=== PATIENT | female | born 1995 | race Caucasian/White ===

== ENCOUNTER 2019-07-08 17:00 | Emergency (ER) | payer BC ==
[2019-07-08] MEDS ORDERED: Sodium Chloride 0.9% 10 ML Syringe FLUSH PRN (17:18)
--- NOTE | 2019-07-08 17:40 | EDM.PDOC ---
ED HPI GENERAL MEDICAL PROBLEM - General Chief Complaint: Back Pain or Injury Stated Complaint: BACK PAIN Time Seen by Provider: 07/08/19 17:05 Source of Information: Reports: Patient History Limitations: Reports: No Limitations - History of Present Illness INITIAL COMMENTS - FREE TEXT/NARRATIVE: Pt. presents to ER with complaints of mid back pain. She was seen in the ER in [facility] earlier today for the same. Pt. states that she had labwork and urinalysis and it was "all fine". She was discharged from the ER with a course of Tramadol for what sounds like a diagnosis of mechanical back pain. Pt. states that she has been gardening a lot and feels that this may have caused the problem. Denies any specific trauma. No imaging was performed in the ER in [place]. 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 Pt. denies any fever or chills. No chest pain or shortness of breath. No cough. No chest congestion. No nausea, vomiting, or diarrhea. Denies any dysuria. No diaphoresis. Onset: Today Onset Date: 07/08/19 Location: Reports: Back Quality: Reports: Throbbing Improves with: Reports: Rest Worsens with: Reports: Movement - Related Data Allergies Allergy/AdvReac Type Severity Reaction Status Date / Time amoxicillin [From Augmentin] Allergy Other Verified 07/08/19 17:18 clavulanic acid Allergy Other Verified 07/08/19 17:18 [From Augmentin] vancomycin Allergy Other Verified 07/08/19 17:18 Home Meds: Home Meds LORazepam [Ativan] 0.5 mg PO ASDIRECTED PRN 07/08/19 [History] rOPINIRole [Requip] 1 mg PO ASDIRECTED 07/08/19 [History] traZODone HCl [Trazodone HCl] 100 mg PO BEDTIME 07/08/19 [History] ED ROS GENERAL - Review of Systems Review Of Systems: See Below Constitutional: Denies: Fever, Chills, Weakness, Fatigue HEENT: Reports: No Symptoms Respiratory: Reports: No Symptoms Cardiovascular: Reports: No Symptoms Endocrine: Reports: No Symptoms GI/Abdominal: Reports: No Symptoms : Reports: No Symptoms Musculoskeletal: Reports: Back Pain Skin: Reports: No Symptoms Neurological: Reports: No Symptoms Psychiatric: Reports: No Symptoms Hematologic/Lymphatic: Reports: No Symptoms Immunologic: Reports: No Symptoms ED EXAM, GENERAL - Physical Exam Exam: See Below Exam Limited By: No Limitations General Appearance: Alert, WD/WN, No Apparent Distress Nose: Normal Inspection, Normal Mucosa, No Blood Throat/Mouth: Normal Inspection, Normal Lips, Normal Teeth, Normal Gums, Normal Oropharynx, Normal Voice, No Airway Compromise Head: Atraumatic, Normocephalic Neck: Normal Inspection, Supple, Non-Tender, Full Range of Motion Respiratory/Chest: No Respiratory Distress, Lungs Clear, Normal Breath Sounds, No Accessory Muscle Use, Chest Non-Tender Cardiovascular: Normal Peripheral Pulses, Regular Rate, Rhythm, No Edema, No Gallop, No JVD, No Murmur, No Rub GI/Abdominal: Normal Bowel Sounds, Soft, Non-Tender, No Organomegaly, No Distention, No Abnormal Bruit, No Mass (Female) Exam: Deferred Rectal (Female) Exam: Deferred Back Exam: Normal Inspection, CVA Tenderness (L), CVA Tenderness (R), Decreased Range of Motion, Muscle Spasm Extremities: Normal Inspection, Normal Range of Motion, Non-Tender, No Pedal Edema, Normal Capillary Refill Neurological: Alert, Oriented, CN II-XII Intact, Normal Cognition, Normal Gait, Normal Reflexes, No Motor/Sensory Deficits Psychiatric: Normal Affect, Normal Mood Skin Exam: Warm, Dry, Intact, Normal Color, No Rash Lymphatic: No Adenopathy Course - Vital Signs Last Recorded V/S: Last Vital Signs Temp 36.7 C 07/08/19 17:05 Pulse 101 H 07/08/19 17:05 Resp 18 07/08/19 17:05 BP 128/82 07/08/19 17:05 Pulse Ox 98 07/08/19 17:05 - Orders/Labs/Meds Orders: Active Orders 24 hr Category Date Time Status Peripheral IV Insertion Adult [OM.PC] Routine Oth 07/08/19 17:19 Ordered Labs: Laboratory Tests 07/08/19 07/08/19 07/08/19 Range/Units 17:30 17:30 17:30 WBC 8.6 (4.0-10.0) x10^3/uL RBC 3.93 L (4.00-5.50) x10^6/uL Hgb 10.8 L (12.0-16.0) g/dL Hct 32.9 L (33.0-47.0) % MCV 83.7 (78.0-93.0) fL MCH 27.5 (26.0-32.0) pg MCHC 32.8 (32.0-36.0) g/dL RDW Coeff of Anayeli 13.6 (10.0-15.0) % Plt Count 213 (130-400) x10^3/uL Neut % (Auto) 56.1 (50.0-80.0) % Lymph % (Auto) 33.9 (25.0-50.0) % [place] % (Auto) 7.9 (2.0-11.0) % Eos % (Auto) 1.9 (0.0-4.0) % Baso % (Auto) 0.2 (0.2-1.2) % PT 10.2 (10.0-12.8) SEC INR 0.9 L (2.0-3.5) Sodium 141 (136-145) mmol/L Potassium 4.0 (3.5-5.1) mmol/L Chloride 103 (98-107) mmol/L Carbon Dioxide 28 (21-32) mmol/L Anion Gap 14.0 (10-20) mmol/L BUN 18 (7-18) mg/dL Creatinine 1.2 H (0.55-1.02) mg/dL Est Cr Clr Drug Dosing TNP Estimated GFR (MDRD) 54 Glucose 87 (74-106) mg/dL Lactic Acid (0.4-2.0) mmol/L Calcium 9.0 (8.5-10.1) mg/dL Corrected Calcium 9.16 (8.5-10.1) mg/dL Phosphorus 3.6 (2.6-4.7) mg/dL Magnesium 1.8 (1.8-2.4) mg/dL Total Bilirubin 0.3 (0.2-1.0) mg/dL AST 16 (15-37) U/L ALT 22 (14-59) U/L Alkaline Phosphatase 76 (46-116) U/L C-Reactive Protein 0.4 (<=0.9) mg/dL Total Protein 7.7 (6.4-8.2) g/dL Albumin 3.8 (3.4-5.0) g/dL Globulin 3.9 Albumin/Globulin Ratio 0.97 Urine Color (YELLOW) Urine Appearance (CLEAR) Urine pH (5.0-8.0) Ur Specific [place] Urine Protein (NEGATIVE) mg/dL Urine Glucose (UA) (NEGATIVE) mg/dL Urine Ketones (NEGATIVE) mg/dL Urine Occult Blood (NEGATIVE) Urine Nitrite (NEGATIVE) Urine Bilirubin (NEGATIVE) Urine Urobilinogen (0.2) EU/dL Ur Leukocyte Esterase (NEGATIVE) Urine RBC (NOT SEEN) /HPF Urine WBC (NOT SEEN) /HPF Ur Squamous Epith Cells (NEGATIVE) /HPF Amorphous Sediment Urine Bacteria (NEGATIVE) /HPF Urine Mucus (NEGATIVE) /LPF 07/08/19 07/08/19 Range/Units 17:30 17:55 WBC (4.0-10.0) x10^3/uL RBC (4.00-5.50) x10^6/uL Hgb (12.0-16.0) g/dL Hct (33.0-47.0) % MCV (78.0-93.0) fL MCH (26.0-32.0) pg MCHC (32.0-36.0) g/dL RDW Coeff of Anayeli (10.0-15.0) % Plt Count (130-400) x10^3/uL Neut % (Auto) (50.0-80.0) % Lymph % (Auto) (25.0-50.0) % [place] % (Auto) (2.0-11.0) % Eos % (Auto) (0.0-4.0) % Baso % (Auto) (0.2-1.2) % PT (10.0-12.8) SEC INR (2.0-3.5) Sodium (136-145) mmol/L Potassium (3.5-5.1) mmol/L Chloride (98-107) mmol/L Carbon Dioxide (21-32) mmol/L Anion Gap (10-20) mmol/L BUN (7-18) mg/dL Creatinine (0.55-1.02) mg/dL Est Cr Clr Drug Dosing Estimated GFR (MDRD) Glucose (74-106) mg/dL Lactic Acid 0.8 (0.4-2.0) mmol/L Calcium (8.5-10.1) mg/dL Corrected Calcium (8.5-10.1) mg/dL Phosphorus (2.6-4.7) mg/dL Magnesium (1.8-2.4) mg/dL Total Bilirubin (0.2-1.0) mg/dL AST (15-37) U/L ALT (14-59) U/L Alkaline Phosphatase (46-116) U/L C-Reactive Protein (<=0.9) mg/dL Total Protein (6.4-8.2) g/dL Albumin (3.4-5.0) g/dL Globulin Albumin/Globulin Ratio Urine Color Yellow (YELLOW) Urine Appearance Cloudy H (CLEAR) Urine pH 5.5 (5.0-8.0) Ur Specific [place] 1.025 Urine Protein Negative (NEGATIVE) mg/dL Urine Glucose (UA) Negative (NEGATIVE) mg/dL Urine Ketones Negative (NEGATIVE) mg/dL Urine Occult Blood Negative (NEGATIVE) Urine Nitrite Negative (NEGATIVE) Urine Bilirubin Negative (NEGATIVE) Urine Urobilinogen 0.2 (0.2) EU/dL Ur Leukocyte Esterase Trace H (NEGATIVE) Urine RBC 0-5 (NOT SEEN) /HPF Urine WBC 20-30 H (NOT SEEN) /HPF Ur Squamous Epith Cells Moderate H (NEGATIVE) /HPF Amorphous Sediment Few Urine Bacteria Few H (NEGATIVE) /HPF Urine Mucus Few H (NEGATIVE) /LPF Meds: Medications Discontinued Medications Generic Name Dose Route Start Last Admin Trade Name Freq PRN Reason Stop Dose Admin Cyclobenzaprine HCl 1 packet 07/08/19 18:32 07/08/19 18:39 Take Home: Cyclobenzaprine 10 Mg, 4 Tab Pack PO 07/08/19 18:33 1 packet ONETIME ONE Administration Diphenhydramine HCl 50 mg 07/08/19 18:02 07/08/19 18:07 Benadryl IVPUSH 07/08/19 18:03 50 mg ONETIME ONE Administration Morphine Sulfate 4 mg 07/08/19 17:57 07/08/19 18:09 Morphine IVPUSH 07/08/19 17:58 4 mg ONETIME ONE Administration Sodium Chloride 10 ml 07/08/19 17:18 Saline Flush FLUSH ASDIRECTED PRN Keep Vein Open Trimethoprim/Sulfamethoxazole 1 packet 07/08/19 18:26 07/08/19 18:39 Take Home: Sulfameth/Trimet 800-160mg, 2 Pack PO 07/08/19 18:27 1 packet ONETIME ONE Administration Departure - Departure Time of Disposition: 18:45 Disposition: Home, Self-Care 01 Clinical Impression: Back pain - Discharge Information Instructions: Mid-Back Strain, Cyclobenzaprine tablets, Urinary Tract Infection , Adult, Sulfamethoxazole; Trimethoprim, SMX-TMP tablets, Probiotics Referrals: PCP,Unknown [Primary Care Provider] - Forms: ED Department Discharge - My Orders Last 24 Hours: My Active Orders 07/08/19 17:19 Peripheral IV Insertion Adult [OM.PC] Routine - Assessment/Plan Last 24 Hours: My Active Orders 07/08/19 17:19 Peripheral IV Insertion Adult [OM.PC] Routine Plan: Home to rest. Continue with tramadol. Flexeril 10mg three times daily. Follow-up in clinic in 5-7 days if not gradually improving.
--- NOTE | 2019-07-08 17:53 | CR ---
[id number] RAD/RAD Chest PA or AP 1V EXAM: RAD Chest PA or AP 1V INDICATION: MID BACK PAIN. COMPARISON: None. DISCUSSION: Cardiomediastinal silhouette is normal in size and contour. No infiltrate, effusion, pneumothorax, or edema. IMPRESSION: No significant cardiopulmonary abnormality. Kaz Almonte DO 07/08/19 0338 Thank you for allowing us to participate in the care of your patient.
[2019-07-08] MEDS ORDERED: Morphine 4 MG/ML Syringe IVPUSH ONE (17:57)
[2019-07-08 18:01] LABS: CHLORIDE,CL 103 mmol/L (98-107); SODIUM,NA 141 mmol/L (136-145)
[2019-07-08] MEDS ORDERED: diphenhydrAMINE 50 MG/ML SDV IVPUSH ONE (18:02)
[2019-07-08] MEDS ORDERED: Take Home: Sulfamethoxazole/Trimethoprim 800-160 MG Tab, 2 Tab Pack PO ONE (18:26)
[2019-07-08] MEDS ORDERED: Take Home: Cyclobenzaprine 10 MG Tab, 4 Tab Pack PO ONE (18:32)
== END 2019-07-08 18:45 | disposition home or self-care (01) ==
LOC: VM.ED 17:00
DX: M54.6 Pain in thoracic spine (principal); Z88.1 Allergy status to other antibiotic agents; Z79.899 Other long term (current) drug therapy
CPT/HCPCS: 71045; 80053; 81001; 83605; 83735; 84100; 85025; 85610; 86140; 96374; 96375; 99284; A9270; J1200; J2270; 36415

== ENCOUNTER 2019-07-20 14:50 | Emergency (ER) | payer BC ==
[2019-07-20] MEDS ORDERED: diphenhydrAMINE 50 MG/ML SDV IVPUSH ONE ×3 (15:03→17:07)
--- NOTE | 2019-07-20 15:09 | EDM.PDOC ---
ED HPI GENERAL MEDICAL PROBLEM - General Chief Complaint: Chest Pain Stated Complaint: CHEST PAIN Time Seen by Provider: 07/20/19 14:55 Source of Information: Reports: Patient, EMS History Limitations: Reports: No Limitations - History of Present Illness INITIAL COMMENTS - FREE TEXT/NARRATIVE: 24-year-old white female presents to ER via EMS with 2 hours of chest pain now midsternal nonradiating sharp pressure is 8 out of 10. 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 She denies any shortness of breath no radiation of pain has some nausea no vomiting also complains of right flank pain times months which she has been seeing urology for for years for chronic UTIs she is currently on antibiotic Cipro unsure if she takes it once or twice day at this time states she has been on it for approximately 2 months or so now. She denies any fever or chills night sweats or shortness breath dyspnea on exertion Onset: Today, Sudden Duration: Hour(s): Quality: Reports: Pressure, Stabbing Severity: Severe Improves with: Reports: None Worsens with: Reports: Breathing, Movement Treatments VASCULAR TECHNOLOGIST: Denies: Acetaminophen, NSAIDS Middle Chest Pain Score (Numeric/FACES): 8 - Related Data Allergies Allergy/AdvReac Type Severity Reaction Status Date / Time amoxicillin [From Augmentin] Allergy Other Verified 07/08/19 17:18 clavulanic acid Allergy Other Verified 07/08/19 17:18 [From Augmentin] sulfamethoxazole Allergy Other Verified 07/20/19 15:36 [From Bactrim] trimethoprim [From Bactrim] Allergy Other Verified 07/20/19 15:36 vancomycin Allergy Other Verified 07/08/19 17:18 Home Meds: Home Meds rOPINIRole [Requip] 1 mg PO ASDIRECTED 07/08/19 [History] traZODone HCl [Trazodone HCl] 100 mg PO BEDTIME 07/08/19 [History] Ciprofloxacin [Ciprofloxacin HCl] 250 mg DAILY 07/20/19 [History] DULoxetine HCl [Duloxetine HCl] 30 mg BID 07/20/19 [History] Past Medical History Psychiatric History: Reports: Anxiety - Past Surgical History Female Surgical History: Reports: Nephrectomy ED ROS GENERAL - Review of Systems Review Of Systems: See Below Constitutional: Reports: No Symptoms HEENT: Reports: No Symptoms Respiratory: Denies: Shortness of Breath, Wheezing, Pleuritic Chest Pain, Cough Cardiovascular: Reports: Chest Pain. Denies: Blood Pressure Problem, Claudication, Dyspnea on Exertion, Edema, Lightheadedness, Orthopnea, Palpitations, PND, Syncope Endocrine: Reports: No Symptoms GI/Abdominal: Reports: No Symptoms, Nausea. Denies: Abdominal Pain, Vomiting : Reports: Flank Pain. Denies: Frequency, Pain, Urgency Musculoskeletal: Reports: No Symptoms Skin: Reports: No Symptoms Neurological: Reports: No Symptoms Psychiatric: Reports: No Symptoms Hematologic/Lymphatic: Reports: No Symptoms Immunologic: Reports: No Symptoms ED EXAM, GENERAL - Physical Exam Exam: See Below Exam Limited By: No Limitations General Appearance: Alert, WD/WN, No Apparent Distress Eye Exam: Bilateral Eye: EOMI, PERRL Nose: Normal Inspection, Normal Mucosa, No Blood Throat/Mouth: Normal Inspection, Normal Lips, Normal Teeth, Normal Gums, Normal Oropharynx, Normal Voice, No Airway Compromise Neck: Normal Inspection, Supple, Non-Tender, Full Range of Motion Respiratory/Chest: No Respiratory Distress, Lungs Clear, Normal Breath Sounds, No Accessory Muscle Use, Other (Positive tenderness to palpation mid sternum of the chest with reproduction of pain). No: Chest Non-Tender Cardiovascular: Normal Peripheral Pulses, Regular Rate, Rhythm, No Edema, No Gallop, No JVD, No Murmur, No Rub GI/Abdominal: Normal Bowel Sounds, Soft, Non-Tender, No Organomegaly, No Distention Back Exam: Normal Inspection, Full Range of Motion. No: CVA Tenderness (L), CVA Tenderness (R), Decreased Range of Motion Extremities: Normal Inspection, Normal Range of Motion, Non-Tender Neurological: Alert, Oriented, CN II-XII Intact, Normal Cognition, Normal Gait Psychiatric: Normal Affect, Normal Mood Skin Exam: Warm, Dry, Intact, Normal Color, No Rash Course - Vital Signs Text/Narrative:: EKG via EMS normal sinus rhythm no acute elevation or depression or changes CBC BMP troponin all negative Urine negative nitrites few bacteria and moderate leukocytes and trace protein patient is currently on Cipro twice a day and sees a urologist all have her follow up with her primary care provider and urologist in the next 24-48 hours with the patient's history culture and sensitivity was sent antibiotics were withheld at this time secondary to patient's significant history of UTIs and currently on Cipro Patient rechecked at 1645 negative chest pain at this time states she is okay with following up primary care provider/urology she will call try to get an appointment we will send a urine culture and sensitivity as well Second troponin is negative PT actively drinking [place] DEW talking on phone txt msg NAD Patient was overheard with a questionable fall to the floor upon standing up out of the chair in the room patient did not have LOC denies any injury states she is fine she was helped back in a chair she said she is fine she is neurologically intact states she is okay with diagnosis treatment well and go home and follow up with her urologist in [place] Last Recorded V/S: Last Vital Signs Temp 37.1 C 07/20/19 14:50 Pulse 100 07/20/19 14:50 Resp 18 07/20/19 14:50 BP 124/69 07/20/19 14:50 Pulse Ox 97 07/20/19 14:50 - Orders/Labs/Meds Orders: Active Orders 24 hr Category Date Time Status CULTURE URINE [RM] Stat Lab 07/20/19 15:10 Received Labs: Laboratory Tests 07/20/19 07/20/19 07/20/19 Range/Units 15:05 15:05 15:10 WBC 9.3 (4.0-10.0) x10^3/uL RBC 4.29 (4.00-5.50) x10^6/uL Hgb 11.8 L (12.0-16.0) g/dL Hct 36.0 (33.0-47.0) % MCV 83.9 (78.0-93.0) fL MCH 27.5 (26.0-32.0) pg MCHC 32.8 (32.0-36.0) g/dL RDW Coeff of Anayeli 14.3 (10.0-15.0) % Plt Count 311 D (130-400) x10^3/uL Neut % (Auto) 57.0 (50.0-80.0) % Lymph % (Auto) 30.8 (25.0-50.0) % [place] % (Auto) 9.8 (2.0-11.0) % Eos % (Auto) 2.2 (0.0-4.0) % Baso % (Auto) 0.2 (0.2-1.2) % Sodium 140 (136-145) mmol/L Potassium 4.1 (3.5-5.1) mmol/L Chloride 104 (98-107) mmol/L Carbon Dioxide 26 (21-32) mmol/L Anion Gap 14.1 (10-20) mmol/L BUN 9 (7-18) mg/dL Creatinine 1.1 H (0.55-1.02) mg/dL Est Cr Clr Drug Dosing TNP Estimated GFR (MDRD) > 60 Glucose 89 (74-106) mg/dL Calcium 9.0 (8.5-10.1) mg/dL Troponin I < 0.017 (<=0.056) ng/mL Urine Color Dark yellow H (YELLOW) Urine Appearance Turbid H (CLEAR) Urine pH 5.5 (5.0-8.0) Ur Specific [place] >=1.030 Urine Protein Trace H (NEGATIVE) mg/dL Urine Glucose (UA) Negative (NEGATIVE) mg/dL Urine Ketones Negative (NEGATIVE) mg/dL Urine Occult Blood Negative (NEGATIVE) Urine Nitrite Negative (NEGATIVE) Urine Bilirubin Negative (NEGATIVE) Urine Urobilinogen 0.2 (0.2) EU/dL Ur Leukocyte Esterase Moderate H (NEGATIVE) Urine RBC 0-5 (NOT SEEN) /HPF Urine WBC 75-100 H (NOT SEEN) /HPF Ur Squamous Epith Cells Moderate H (NEGATIVE) /HPF Amorphous Sediment Few Urine Bacteria Few H (NEGATIVE) /HPF Urine Mucus Moderate H (NEGATIVE) /LPF 07/20/19 Range/Units 18:12 WBC (4.0-10.0) x10^3/uL RBC (4.00-5.50) x10^6/uL Hgb (12.0-16.0) g/dL Hct (33.0-47.0) % MCV (78.0-93.0) fL MCH (26.0-32.0) pg MCHC (32.0-36.0) g/dL RDW Coeff of Anayeli (10.0-15.0) % Plt Count (130-400) x10^3/uL Neut % (Auto) (50.0-80.0) % Lymph % (Auto) (25.0-50.0) % [place] % (Auto) (2.0-11.0) % Eos % (Auto) (0.0-4.0) % Baso % (Auto) (0.2-1.2) % Sodium (136-145) mmol/L Potassium (3.5-5.1) mmol/L Chloride (98-107) mmol/L Carbon Dioxide (21-32) mmol/L Anion Gap (10-20) mmol/L BUN (7-18) mg/dL Creatinine (0.55-1.02) mg/dL Est Cr Clr Drug Dosing Estimated GFR (MDRD) Glucose (74-106) mg/dL Calcium (8.5-10.1) mg/dL Troponin I < 0.017 (<=0.056) ng/mL Urine Color (YELLOW) Urine Appearance (CLEAR) Urine pH (5.0-8.0) Ur Specific [place] Urine Protein (NEGATIVE) mg/dL Urine Glucose (UA) (NEGATIVE) mg/dL Urine Ketones (NEGATIVE) mg/dL Urine Occult Blood (NEGATIVE) Urine Nitrite (NEGATIVE) Urine Bilirubin (NEGATIVE) Urine Urobilinogen (0.2) EU/dL Ur Leukocyte Esterase (NEGATIVE) Urine RBC (NOT SEEN) /HPF Urine WBC (NOT SEEN) /HPF Ur Squamous Epith Cells (NEGATIVE) /HPF Amorphous Sediment Urine Bacteria (NEGATIVE) /HPF Urine Mucus (NEGATIVE) /LPF Meds: Medications Discontinued Medications Generic Name Dose Route Start Last Admin Trade Name Freq PRN Reason Stop Dose Admin Diphenhydramine HCl 12.5 mg 07/20/19 15:03 Benadryl IVPUSH 07/20/19 15:04 ONETIME ONE Diphenhydramine HCl 25 mg 07/20/19 15:10 07/20/19 15:46 Benadryl IVPUSH 07/20/19 15:11 25 mg ONETIME ONE Administration Diphenhydramine HCl 25 mg 07/20/19 17:07 07/20/19 17:10 Benadryl IVPUSH 07/20/19 17:08 25 mg ONETIME ONE Administration Methocarbamol 1,000 mg 07/20/19 15:50 07/20/19 16:07 Robaxin PO 07/20/19 15:51 1,000 mg ONETIME ONE Administration Departure - Departure Time of Disposition: 18:55 Disposition: Home, Self-Care 01 Condition: Good Clinical Impression: Chest pain, Flank pain Instructions: Nonspecific Chest Pain Referrals: PCP,Not In Area [Primary Care Provider] - Forms: ED Department Discharge Additional Instructions: Follow up with her primary care provider/urologist in the next 24-48 hours Return to emergency room if anything changes or gets worse - Problem List & Annotations (1) Chest pain SNOMED Code(s): 92012091 Code(s): R07.9 - CHEST PAIN, UNSPECIFIED Status: Acute Current Visit: Yes (2) Chronic UTI SNOMED Code(s): 833102175 Code(s): N39.0 - URINARY TRACT INFECTION, SITE NOT SPECIFIED Status: Acute Current Visit: Yes - My Orders Last 24 Hours: My Active Orders 07/20/19 15:10 CULTURE URINE [RM] Stat - Assessment/Plan Last 24 Hours: My Active Orders 07/20/19 15:10 CULTURE URINE [RM] Stat
[2019-07-20 15:43] LABS: CHLORIDE,CL 104 mmol/L (98-107); SODIUM,NA 140 mmol/L (136-145)
[2019-07-20 15:44] LABS: ANION GAP 14.1 mmol/L (10-20)
[2019-07-20] MEDS ORDERED: Methocarbamol 500 MG Tab PO ONE (15:50)
--- NOTE | 2019-07-20 15:51 | CR ---
[id number] RAD/RAD Chest PA or AP 1V EXAM: RAD Chest PA or AP 1V INDICATION: CHEST PAIN. COMPARISON: July 08, 2019. DISCUSSION: Cardiomediastinal silhouette is normal in size and contour. No infiltrate, effusion, pneumothorax, or edema. IMPRESSION: Negative examination of the chest. Miguelito Ramirez MD 07/20/19 5621 Thank you for allowing us to participate in the care of your patient.
== END 2019-07-20 20:07 | disposition home or self-care (01) ==
LOC: VM.ED 14:50
DX: R07.89 Other chest pain (principal); R10.9 Unspecified abdominal pain; F41.9 Anxiety disorder, unspecified; Z88.1 Allergy status to other antibiotic agents; Z88.2 Allergy status to sulfonamides; Z79.899 Other long term (current) drug therapy; Z90.5 Acquired absence of kidney
CPT/HCPCS: 36415; 71045; 80048; 81001; 84484; 85025; 87086; 96374; 96376; 99285; A9270; J1200